=== PATIENT | female | born 1990 | race African-American/Black ===

== ENCOUNTER 2016-11-23 12:53 | Emergency (ER) | payer OTHER ==
[~2016-11-23] VITALS: Ht 170.2 cm; Wt 75.3 kg
[~2016-11-23 12:53] MED LIST: ONDANSETRON HCL4 M2 PO; PENICILLIN V P500 MG PO
[2016-11-23 13:36] LABS: URINE BILIRUBIN 1+ (Negative); URINE BLOOD NEGATIVE (Negative); URINE COLOR YELLOW; URINE GLUCOSE-RANDOM* NEGATIVE (Negative); URINE KETONES 1+ (Negative); URINE LEUKOCYTES-REFLEX NEGATIVE (Negative); URINE PROTEIN (DIPSTICK) 1+ (Negative); URINE SPECIFIC GRAVITY >= 1.030 (1.003-1.035)
[2016-11-23 13:38] LABS: BASOPHILS 0.5 % (0.0-2.0); EOSINOPHILS 1.4 % (0.0-3.0); HEMATOCRIT 45.8 % (37.0-47.0); HEMOGLOBIN 15.4 gm/dL (12.0-15.0); LYMPHOCYTES 27.4 % (24.0-44.0); MCH 32.4 pg (26.0-34.0); MCHC 33.7 % (28.0-37.0); MCV 96.3 fL (80.0-100.0); MONOCYTES 10.2 % (1.0-8.0); PLATELET COUNT 172 thou/uL (150-400); POLYS 60.5 % (36.0-66.0); RBC 4.76 mil/uL (4.20-5.00); RDW 13.3 % (10.5-14.5)
[2016-11-23 13:39] LABS: ICTOTEST (BILI CONFIRMATORY) Positive (Negative)
[2016-11-23 13:42] LABS: CASTS None Seen /LPF (None Seen); SQUAMOUS 4-10 Moderate /LPF (0-3); URINE WBC-REFLEX 0-5 Rare /HPF (0-5)
[2016-11-23 13:43] LABS: MANUAL DIFF NO
[2016-11-23 13:43] LABS: CRYSTALS None Seen /LPF (None Seen); URINE RBC None Seen /HPF (0-2)
[2016-11-23 13:47] LABS: CALCIUM 8.9 mg/dL (8.5-10.1); CREATININE 0.9 mg/dL (0.6-1.3); MAGNESIUM 1.5 mg/dL (1.8-2.4)
[2016-11-23 15:41] VITALS: BP 113/68
[2017-01-13] MEDS ORDERED: PREDNISONE 10 M10 MG PO (16:42)
== END 2016-11-23 15:43 | disposition home or self-care (01) ==
LOC: ER 12:53
PROVIDERS: Emergency Medicine
DX: E87.6 Hypokalemia (principal); E83.42 Hypomagnesemia; Z88.6 Allergy status to analgesic agent

== ENCOUNTER 2016-11-23 18:39 | Emergency (ER) | payer OTHER ==
[~2016-11-23] VITALS: Ht 170.2 cm; Wt 75.3 kg
[2016-11-23 19:20] LABS: HEMATOCRIT 41.6 % (37.0-47.0); HEMOGLOBIN 13.9 gm/dL (12.0-15.0); MCH 32.7 pg (26.0-34.0); MCHC 33.5 % (28.0-37.0); MCV 97.4 fL (80.0-100.0); RBC 4.27 mil/uL (4.20-5.00); RDW 13.4 % (10.5-14.5); WBC 7.3 thou/uL (4.0-11.0)
[2016-11-23 19:42] LABS: CALCIUM 8.4 mg/dL (8.5-10.1); CREATININE 0.9 mg/dL (0.6-1.3); POTASSIUM 3.4 mmol/L (3.5-5.1)
[2016-11-23 19:48] LABS: ALBUMIN 3.3 g/dL (3.4-5.0); MAGNESIUM 1.9 mg/dL (1.8-2.4); TOTAL BILIRUBIN 0.4 mg/dL (<0.1-1.0); TOTAL PROTEIN 6.2 g/dL (6.4-8.2)
[2016-11-23 20:41] LABS: URINE BILIRUBIN 1+ (Negative); URINE BLOOD NEGATIVE (Negative); URINE COLOR YELLOW; URINE GLUCOSE-RANDOM* NEGATIVE (Negative); URINE KETONES 1+ (Negative); URINE NITRITE NEGATIVE (Negative); URINE PROTEIN (DIPSTICK) TRACE (Negative); URINE SPECIFIC GRAVITY >= 1.030 (1.003-1.035)
[2016-11-23 20:44] LABS: ICTOTEST (BILI CONFIRMATORY) Positive (Negative)
[2016-11-23 20:48] LABS: AMP/METHAMP Negative (Negative); BARBITURATES Negative (Negative); BENZODIAZEPINES Negative (Negative); COCAINE Negative (Negative); METHADONE Negative (Negative); OPIATES Negative (Negative); PCP Negative (Negative); THC POSITIVE (Negative)
[2016-11-23 21:49] VITALS: BP 118/75
[2017-01-13] MEDS ORDERED: PREDNISONE 10 M10 MG PO (16:42)
== END 2016-11-23 21:50 | disposition home or self-care (01) ==
LOC: ER 18:39
PROVIDERS: Physician Assistant
DX: M62.82 Rhabdomyolysis (principal); E87.6 Hypokalemia; M79.1 Myalgia; Z88.8 Allergy status to other drugs, medicaments and biological substances

== ENCOUNTER 2017-06-26 08:46 | Emergency (ER) | payer OTHER ==
[~2017-06-26] VITALS: Ht 162.6 cm; Wt 72.6 kg
[~2017-06-26 08:46] MED LIST changes: +KEFLEX500 MG PO; +MIRALAX17 GM PO; +PREDNISONE 10 M10 MG PO; +TRINATE TABLET1 TAB PO; +ZOFRAN ODT8 MG PO
[2017-06-26 09:26] LABS: HEMATOCRIT 37.7 % (37.0-47.0); HEMOGLOBIN 12.8 gm/dL (12.0-15.0); MCH 32.8 pg (26.0-34.0); MCV 96.6 fL (80.0-100.0); RBC 3.91 mil/uL (4.20-5.00); RDW 14.8 % (10.5-14.5); WBC 6.2 thou/uL (4.0-11.0)
[2017-06-26 09:35] LABS: CALCIUM 9.6 mg/dL (8.5-10.1); CREATININE 0.7 mg/dL (0.6-1.0); POTASSIUM 3.2 mmol/L (3.5-5.1)
[2017-06-26 09:42] LABS: ALBUMIN 3.6 g/dL (3.4-5.0); TOTAL BILIRUBIN 0.8 mg/dL (<0.1-1.0); TOTAL PROTEIN 7.9 g/dL (6.4-8.2)
[2017-06-26] MEDS ORDERED: REGLAN 10 MG TA10 MG PO (10:25)
[2017-06-26 10:44] LABS: URINE BLOOD NEGATIVE (Negative); URINE COLOR YELLOW; URINE GLUCOSE-RANDOM* NEGATIVE (Negative); URINE KETONES 3+ (Negative); URINE LEUKOCYTES-REFLEX 2+ (Negative); URINE PROTEIN (DIPSTICK) 1+ (Negative); URINE SPECIFIC GRAVITY >= 1.030 (1.003-1.035); URINE UROBILINOGEN 0.2 E.U./dl (0.2-1.0)
[2017-06-26 10:46] LABS: ICTOTEST (BILI CONFIRMATORY) Negative (Negative); URINE BILIRUBIN NEGATIVE (Negative)
[2017-06-26 10:56] LABS: CASTS None Seen /LPF (None Seen); CRYSTALS None Seen /LPF (None Seen); SQUAMOUS >10 Many /LPF (0-3)
[2017-06-26 10:57] LABS: URINE RBC 0-2 Rare /HPF (0-2)
[2017-06-26] MEDS ORDERED: KEFLEX500 M1 PO (11:04)
[2017-06-26 11:11] VITALS: BP 118/69
== END 2017-06-26 11:13 | disposition home or self-care (01) ==
LOC: ER 08:46
PROVIDERS: Emergency Medicine
DX: O21.9 Vomiting of pregnancy, unspecified (principal); Z3A.20 20 weeks gestation of pregnancy; Z88.6 Allergy status to analgesic agent

== ENCOUNTER 2017-08-09 10:13 | Emergency (ER) | payer OTHER ==
[~2017-08-09] VITALS: Ht 167.6 cm; Wt 78.5 kg
[~2017-08-09 10:13] MED LIST changes: +KEFLEX500 M1 PO; +REGLAN 10 MG TA10 MG PO
[2017-08-09 10:38] LABS: URINE BILIRUBIN 1+ (Negative); URINE BLOOD NEGATIVE (Negative); URINE COLOR YELLOW; URINE GLUCOSE-RANDOM* NEGATIVE (Negative); URINE KETONES 3+ (Negative); URINE PROTEIN (DIPSTICK) 1+ (Negative); URINE SPECIFIC GRAVITY >= 1.030 (1.003-1.035); URINE UROBILINOGEN 0.2 E.U./dl (0.2-1.0)
[2017-08-09 10:48] LABS: ICTOTEST (BILI CONFIRMATORY) Negative (Negative); URINE LEUKOCYTES-REFLEX 1+ (Negative)
[2017-08-09 10:50] LABS: ABSOLUTE NEUTROPHILS 4.8 thou/uL (1.4-8.2); BASOPHILS 0.4 % (0.0-2.0); EOSINOPHILS 0.7 % (0.0-3.0); HEMATOCRIT 35.4 % (37.0-47.0); LYMPHOCYTES 15.6 % (24.0-44.0); MCH 33.8 pg (26.0-34.0); MCHC 33.9 g/dL (28.0-37.0); MCV 99.7 fL (80.0-100.0); MONOCYTES 6.9 % (1.0-8.0); PLATELET COUNT 169 thou/uL (150-400); POLYS 76.4 % (36.0-66.0); RBC 3.56 mil/uL (4.20-5.00); WBC 6.3 thou/uL (4.0-11.0)
[2017-08-09 10:51] LABS: MANUAL DIFF NO
[2017-08-09 10:56] LABS: SQUAMOUS >10 Many /LPF (0-3)
[2017-08-09 10:57] LABS: CASTS None Seen /LPF (None Seen); CRYSTALS None Seen /LPF (None Seen)
[2017-08-09 10:59] LABS: URINE RBC 0-2 Rare /HPF (0-2); URINE WBC-REFLEX 0-5 Rare /HPF (0-5)
[2017-08-09 11:00] LABS: CALCIUM 9.1 mg/dL (8.5-10.1); CREATININE 0.7 mg/dL (0.6-1.0); POTASSIUM 3.3 mmol/L (3.5-5.1)
[2017-08-09 11:06] LABS: ALBUMIN 3.2 g/dL (3.4-5.0); TOTAL BILIRUBIN 0.5 mg/dL (<0.1-1.0); TOTAL PROTEIN 7.7 g/dL (6.4-8.2)
[2017-08-09] MEDS ORDERED: REGLAN 10 MG TA10 MG PO (12:14)
[2017-08-09 12:36] VITALS: BP 94/51
== END 2017-08-09 12:44 | disposition home or self-care (01) ==
LOC: ER 10:13
PROVIDERS: Physician Assistant
DX: O21.9 Vomiting of pregnancy, unspecified (principal); Z3A.24 24 weeks gestation of pregnancy; R19.7 Diarrhea, unspecified; R10.30 Lower abdominal pain, unspecified; Z88.6 Allergy status to analgesic agent; F12.10 Cannabis abuse, uncomplicated